=== PATIENT | male | born 1970 | race Caucasian/White ===

== ENCOUNTER 2016-11-07 18:39 | Emergency (ER) | payer OTHER, MEDICAID ==
[~2016-11-07] VITALS: Ht 162.6 cm; Wt 110.7 kg
[~2016-11-07 18:39] MED LIST: ACULAR PF0.5% OU; ALDACTONE25 MG; ALDACTONE25 MG PO; AMBIEN10 MG PO; AMBIEN5 MG PO; AMLODIPINE BESYL5 M1 PO; APAP500 MG PO; ASPIR 8181 MG PO; ASPIRIN81 MG PO; ATORVASTATIN CA40 M1 PO; BACLOFEN10 MG PO; BACTRIM DS1 TAB PO; BEN20 PO; CARVEDILOL12.5 M1 PO; CELEXA10 MG PO; CIPRO500 MG PO; DOXYCYCLINE HY100 MG PO; ECO81 PO; ENALAPRIL MALEA20 MG PO; ENALAPRIL20 M1 PO; FLONS; FUROSEMIDE20 MG PO; GLU500 PO; GOOD SENSE ASPI81 M3 PO; HUMALOG; HUMALOG100 U/ML SC; HYDROCODONE BIT1 TA9 PO; JANUVIA100 M1 PO; K10 PO; LAC PO; LANTI SC; LANTUS; LANTUS SOLOS100 U/M1 SC; LANTUS SOLOS100 U/M1 SQ; LASIX20 MG; LASIX20 MG PO; LASIX40 MG PO; LIPITOR80 MG PO; LOPRESSOR50 MG PO; MAAL PO; METFORMIN ER500 M1 PO; METOPROLOL SUCC25 M1 PO; METOPROLOL SUCC50 M1 PO; NEU300 PO; NORCO1 TA2 PO; OMEPRAZOLE DR20 M1 PO; ONDANSETRON8 M1 PO; PORTIA PO; POTASSIUM CHLO10 MEQ PO; POTASSIUM CHLOR8 MEQ PO; PREDNISOLONE ACETATE OU; PRI20 PO; PROMETHAZI6.25 MG/5 PO; SIMVASTATIN20 M1 PO; TERAZOSIN HCL2 MG PO; THERAGRAN-M1 TA4 PO; VIGAMOX3 ML OU; ZOC20 PO
[2016-11-07 19:25] LABS: BASOPHIL % 0.1 % (0-2); PLATELET COUNT 260 x10^3mcL (130-400); RED CELL DISTRIBUTION WIDTH 13.6 % (11.5-14.5)
[2016-11-07 19:34] LABS: CALCIUM 8.2 mg/dL (8.5-10.1); CARBON DIOXIDE 25.5 mmol/L (21-32); CREATININE SERUM 2.2 mg/dL (0.7-1.3); POTASSIUM SERUM 4.9 mmol/L (3.5-5.1)
[2016-11-07 19:40] LABS: BILIRUBIN TOTAL 0.3 mg/dL (0.20-1.00); TOTAL PROTEIN, SERUM 6.8 g/dL (6.4-8.2)
[2016-11-07 19:41] LABS: ALBUMIN 2.5 g/dL (3.4-5.0)
[2016-11-07 20:36] LABS: UA SPECIFIC GRAVITY <=1.005 (1.005-1.035); microscopic required? YES; urine erythrocyte 1+ (NEGATIVE)
[2016-11-07 21:22] VITALS: BP 140/71
== END 2016-11-07 21:22 | disposition home or self-care (01) ==
LOC: ED 18:39
PROVIDERS: Emergency Medicine
DX: R10.11 Right upper quadrant pain (principal); R10.13 Epigastric pain; E11.22 Type 2 diabetes mellitus with diabetic chronic kidney disease; I12.9 Hypertensive chronic kidney disease with stage 1 through stage 4 chronic kidney disease, or unspecified chronic kidney disease; N18.9 Chronic kidney disease, unspecified; E11.65 Type 2 diabetes mellitus with hyperglycemia; Z86.79 Personal history of other diseases of the circulatory system; Z86.73 Personal history of transient ischemic attack (TIA), and cerebral infarction without residual deficits; Z79.899 Other long term (current) drug therapy; Z90.49 Acquired absence of other specified parts of digestive tract
CPT/HCPCS: J1885; J2270; J2405; J7030; Q0092

== ENCOUNTER 2017-12-12 23:30 | Inpatient (IN) | payer OTHER ==
[~2017-12-12] VITALS: Ht 162.6 cm; Wt 105.5 kg
[~2017-12-12 23:30] MED LIST changes: +CELEXA20 MG PO; +HUMALOG100 UNIT/1 PO; +LANTUS SOLOS100 U/M1 PO; +METOPROLOL TART25 M1 PO; -OMEPRAZOLE DR20 M1 PO; +OMEPRAZOLE MAGN20 M1; +TESSALON PERLE100 MG PO; +TRADJENTA5 M1 PO
[2017-12-12 23:34] VITALS: Ht 162.6 cm; Wt 105.5 kg
[2017-12-13 00:34] LABS: BASOPHIL % 0.2 % (0-2); PLATELET COUNT 304 x10^3mcL (130-400); RED CELL DISTRIBUTION WIDTH 14.5 % (11.5-14.5)
[2017-12-13 00:41] LABS: CALCIUM 8.3 mg/dL (8.5-10.1); CARBON DIOXIDE 24.9 mmol/L (21-32); CREATININE SERUM 2.7 mg/dL (0.7-1.3); POTASSIUM SERUM 5.2 mmol/L (3.5-5.1)
[2017-12-13 00:46] LABS: BILIRUBIN TOTAL 0.2 mg/dL (0.20-1.00); TOTAL PROTEIN, SERUM 6.5 g/dL (6.4-8.2)
[2017-12-13] MEDS ORDERED: CELEXA20 MG PO (01:23)
[2017-12-13] MEDS ORDERED: SPIRONOLACTONE100 MG PO (01:23)
[2017-12-13] MEDS ORDERED: NORCO1 TA2 PO (01:24)
[2017-12-13] MEDS ORDERED: NEU300 PO (01:24)
[2017-12-13] MEDS ORDERED: ENALAPRIL MALEA20 MG PO (01:25)
[2017-12-13] MEDS ORDERED: METOPROLOL SUCC50 M2 PO (01:25)
[2017-12-13] MEDS ORDERED: TRADJENTA5 M1 PO (01:25)
[2017-12-13] MEDS ORDERED: REG5 PO (01:26)
[2017-12-13] MEDS ORDERED: FUROSEMIDE40 MG PO (01:27)
[2017-12-13] MEDS ORDERED: MIRAPEX0.25 MG PO (01:27)
[2017-12-13] MEDS ORDERED: VITAFOL-ONE1 SGL PO (01:28)
[2017-12-13 02:04] LABS: T3 TOTAL 1.43 ng/mL
[2017-12-13 02:05] LABS: FREE T4 0.88 ng/dL (0.76-1.46); FREE THYROXINE INDEX 2.2 ug/dL (1.4-4.5)
[2017-12-13 02:33] VITALS: BP 147/76
[2017-12-13 02:43] LABS: PHOSPHOROUS 4.2 mg/dL (2.5-4.9)
[2017-12-13 05:11] VITALS: BP 139/78
[2017-12-13 06:18] LABS: BASOPHIL % 0.4 % (0-2); PLATELET COUNT 287 x10^3mcL (130-400); RED CELL DISTRIBUTION WIDTH 14.3 % (11.5-14.5)
[2017-12-13 06:30] LABS: CARBON DIOXIDE 22.7 mmol/L (21-32); CREATININE SERUM 2.6 mg/dL (0.7-1.3)
[2017-12-13 07:03] LABS: POTASSIUM SERUM 6.1 mmol/L (3.5-5.1)
[2017-12-13 07:51] LABS: UA SPECIFIC GRAVITY 1.025 (1.005-1.035); microscopic required? YES; urine erythrocyte 1+ (NEGATIVE)
[2017-12-13 08:01] LABS: AMPHETAMINE QUAL UR NONE DETECTED (See below)
[2017-12-13 08:54] VITALS: BP 138/77
[2017-12-13 17:41] VITALS: BP 126/78
[2017-12-13 21:29] VITALS: BP 129/50
[2017-12-14 05:09] VITALS: BP 108/57
[2017-12-14 06:50] LABS: BASOPHIL % 0.4 % (0-2); PLATELET COUNT 339 x10^3mcL (130-400); RED CELL DISTRIBUTION WIDTH 13.3 % (11.5-14.5)
[2017-12-14 07:08] LABS: CALCIUM 8.9 mg/dL (8.5-10.1); CARBON DIOXIDE 25.2 mmol/L (21-32); CREATININE SERUM 2.5 mg/dL (0.7-1.3); PHOSPHOROUS 4.7 mg/dL (2.5-4.9)
[2017-12-14 07:12] LABS: POTASSIUM SERUM 6.1 mmol/L (3.5-5.1)
[2017-12-14 08:00] VITALS: BP 121/55
[2017-12-14 12:55] LABS: CALCIUM 8.9 mg/dL (8.5-10.1); CARBON DIOXIDE 26.5 mmol/L (21-32); CREATININE SERUM 2.5 mg/dL (0.7-1.3); POTASSIUM SERUM 5.5 mmol/L (3.5-5.1)
[2017-12-14] MEDS ORDERED: [UNRECOGNIZED DRUG - OTHER] PO (15:39)
[2017-12-14 16:49] VITALS: BP 121/55
[2017-12-14 16:55] VITALS: BP 127/69
== END 2017-12-14 17:10 | disposition home or self-care (01) | DRG 438 ==
LOC: ED 23:30 → MU 12-13 00:59 → DU 12-13 00:59 → MU 12-13 02:17
PROVIDERS: Emergency Medicine; Internal Medicine
DX: K85.90 Acute pancreatitis without necrosis or infection, unspecified (principal); N17.0 Acute kidney failure with tubular necrosis; E43 Unspecified severe protein-calorie malnutrition; I50.43 Acute on chronic combined systolic (congestive) and diastolic (congestive) heart failure; E11.65 Type 2 diabetes mellitus with hyperglycemia; E87.5 Hyperkalemia; F32.9 Major depressive disorder, single episode, unspecified; D64.9 Anemia, unspecified; E78.5 Hyperlipidemia, unspecified; I25.2 Old myocardial infarction; Z79.4 Long term (current) use of insulin; Z86.73 Personal history of transient ischemic attack (TIA), and cerebral infarction without residual deficits
CPT/HCPCS: 82962; 83880; 84439; J1815; J2270; J2405; J3490; J7030; J8597; Q0092

== ENCOUNTER 2018-04-27 22:03 | Emergency (ER) | payer OTHER ==
[~2018-04-27] VITALS: Ht 162.6 cm; Wt 108.9 kg
[~2018-04-27 22:03] MED LIST changes: +FUROSEMIDE40 MG PO; +METOPROLOL SUCC50 M2 PO; +MIRAPEX0.25 MG PO; +REG5 PO; +SPIRONOLACTONE100 MG PO; +VITAFOL-ONE1 SGL PO; +[UNRECOGNIZED DRUG - OTHER] PO
[2018-04-27 23:04] VITALS: Ht 162.6 cm; Wt 108.9 kg
[2018-04-28 00:36] LABS: BASOPHIL % 0.3 % (0-2); PLATELET COUNT 334 x10^3mcL (130-400); RED CELL DISTRIBUTION WIDTH 13.6 % (11.5-14.5)
[2018-04-28 00:40] LABS: BILIRUBIN TOTAL 0.1 mg/dL (0.20-1.00); CALCIUM 8.3 mg/dL (8.5-10.1); CARBON DIOXIDE 25.4 mmol/L (21-32); CREATININE SERUM 3.3 mg/dL (0.7-1.3); POTASSIUM SERUM 4.9 mmol/L (3.5-5.1)
[2018-04-28 00:42] LABS: ALBUMIN 2.2 g/dL (3.4-5.0)
[2018-04-28 02:13] VITALS: BP 100/53
== END 2018-04-28 02:00 | disposition home or self-care (01) ==
LOC: ED 22:03
PROVIDERS: Emergency Medicine
DX: R10.32 Left lower quadrant pain (principal); E11.22 Type 2 diabetes mellitus with diabetic chronic kidney disease; I12.9 Hypertensive chronic kidney disease with stage 1 through stage 4 chronic kidney disease, or unspecified chronic kidney disease; N18.9 Chronic kidney disease, unspecified; E78.00 Pure hypercholesterolemia, unspecified; Z86.73 Personal history of transient ischemic attack (TIA), and cerebral infarction without residual deficits; Z90.49 Acquired absence of other specified parts of digestive tract; Z95.5 Presence of coronary angioplasty implant and graft; Z98.890 Other specified postprocedural states
CPT/HCPCS: 82962; J2270; J2405; J7030

== ENCOUNTER 2018-10-27 22:16 | Emergency (ER) | payer OTHER ==
[~2018-10-27] VITALS: Ht 162.6 cm; Wt 115.8 kg
[2018-10-27 22:19] VITALS: Ht 162.6 cm; Wt 115.8 kg
[2018-10-27 23:34] LABS: BASOPHIL % 0.3 % (0-2); PLATELET COUNT 285 x10^3mcL (130-400); RED CELL DISTRIBUTION WIDTH 13.4 % (11.5-14.5)
[2018-10-27 23:48] LABS: BILIRUBIN TOTAL 0.2 mg/dL (0.20-1.00); CALCIUM 7.7 mg/dL (8.5-10.1); CARBON DIOXIDE 25.5 mmol/L (21-32); POTASSIUM SERUM 4.9 mmol/L (3.5-5.1); TOTAL PROTEIN, SERUM 6.5 g/dL (6.4-8.2)
[2018-10-27 23:51] LABS: CREATININE SERUM 4.3 mg/dL (0.7-1.3)
[2018-10-28 00:24] VITALS: BP 141/41
== END 2018-10-28 00:24 | disposition home or self-care (01) ==
LOC: ED 22:16
PROVIDERS: Specialist
DX: R20.2 Paresthesia of skin (principal); G45.9 Transient cerebral ischemic attack, unspecified; I25.2 Old myocardial infarction; R22.43 Localized swelling, mass and lump, lower limb, bilateral; I12.0 Hypertensive chronic kidney disease with stage 5 chronic kidney disease or end stage renal disease; E11.22 Type 2 diabetes mellitus with diabetic chronic kidney disease; N18.6 End stage renal disease; Z90.49 Acquired absence of other specified parts of digestive tract
CPT/HCPCS: 36415; 82962

== ENCOUNTER 2018-11-27 00:10 | Emergency (ER) | payer OTHER ==
[~2018-11-27] VITALS: Ht 162.6 cm; Wt 113.9 kg
[2018-11-27 00:14] VITALS: Ht 162.6 cm; Wt 113.9 kg
[2018-11-27 02:28] LABS: microscopic required? YES; urine erythrocyte 1+ (NEGATIVE)
[2018-11-27 02:42] LABS: CARBON DIOXIDE 22.2 mmol/L (21-32); CREATININE SERUM 3.5 mg/dL (0.7-1.3); POTASSIUM SERUM 4.2 mmol/L (3.5-5.1)
[2018-11-27 02:43] LABS: BASOPHIL % 0.2 % (0-2); PLATELET COUNT 251 x10^3mcL (130-400); RED CELL DISTRIBUTION WIDTH 13.6 % (11.5-14.5)
[2018-11-27 02:57] LABS: ALBUMIN 2.1 g/dL (3.4-5.0); BILIRUBIN TOTAL 0.25 mg/dL (0.20-1.00); TOTAL PROTEIN, SERUM 6.8 g/dL (6.4-8.2)
[2018-11-27 04:05] VITALS: BP 147/71
== END 2018-11-27 04:05 | disposition home or self-care (01) ==
LOC: ED 00:10
PROVIDERS: Emergency Medicine
DX: R10.31 Right lower quadrant pain (principal); R10.32 Left lower quadrant pain; R19.7 Diarrhea, unspecified; R11.0 Nausea; L53.9 Erythematous condition, unspecified
CPT/HCPCS: J2405; J3010

== ENCOUNTER 2019-01-17 02:33 | Emergency (ER) | payer OTHER ==
[~2019-01-17] VITALS: Ht 162.6 cm; Wt 113.4 kg
[2019-01-17 02:35] VITALS: Ht 162.6 cm; Wt 113.4 kg
[2019-01-17 03:16] LABS: BASOPHIL % 0.3 % (0-2); PLATELET COUNT 293 x10^3mcL (130-400); RED CELL DISTRIBUTION WIDTH 14.3 % (11.5-14.5)
[2019-01-17 03:35] LABS: BILIRUBIN TOTAL 0.21 mg/dL (0.20-1.00); CALCIUM 8.6 mg/dL (8.5-10.1); CARBON DIOXIDE 23.3 mmol/L (21-32); POTASSIUM SERUM 4.2 mmol/L (3.5-5.1); TOTAL PROTEIN, SERUM 7.5 g/dL (6.4-8.2)
[2019-01-17 03:36] LABS: ALBUMIN 2.2 g/dL (3.4-5.0)
[2019-01-17 04:44] VITALS: BP 148/90
== END 2019-01-17 04:44 | disposition home or self-care (01) ==
LOC: ED 02:33
PROVIDERS: Emergency Medicine
DX: K52.9 Noninfective gastroenteritis and colitis, unspecified (principal); E11.9 Type 2 diabetes mellitus without complications; E78.00 Pure hypercholesterolemia, unspecified; I10 Essential (primary) hypertension; Z86.73 Personal history of transient ischemic attack (TIA), and cerebral infarction without residual deficits; Z90.49 Acquired absence of other specified parts of digestive tract
CPT/HCPCS: J1885; J2405; J7030

== ENCOUNTER 2019-09-10 03:29 | Emergency (ER) | payer OTHER ==
[~2019-09-10] VITALS: Ht 162.6 cm; Wt 115.8 kg
[2019-09-10 04:52] LABS: CALCIUM 7.7 mg/dL (8.5-10.1); CARBON DIOXIDE 20.1 mmol/L (21-32)
[2019-09-10 04:54] LABS: CREATININE SERUM 7.2 mg/dL (0.7-1.3)
[2019-09-10 05:44] VITALS: BP 187/97
== END 2019-09-10 05:44 | disposition home or self-care (01) ==
LOC: ED 03:29
PROVIDERS: Student in an Organized Health Care Education/Training Program
DX: E87.6 Hypokalemia (principal); E11.22 Type 2 diabetes mellitus with diabetic chronic kidney disease; I12.0 Hypertensive chronic kidney disease with stage 5 chronic kidney disease or end stage renal disease; N18.6 End stage renal disease; M79.604 Pain in right leg; E78.00 Pure hypercholesterolemia, unspecified; Z86.73 Personal history of transient ischemic attack (TIA), and cerebral infarction without residual deficits; Z90.49 Acquired absence of other specified parts of digestive tract

== ENCOUNTER 2019-10-08 22:47 | Emergency (ER) | payer OTHER ==
[~2019-10-08] VITALS: Ht 162.6 cm; Wt 117.9 kg
[2019-10-08 22:58] VITALS: Ht 162.6 cm; Wt 117.9 kg
--- NOTE | 2019-10-08 23:04 | NUR ---
PT RESTING IN BED, [id number] WITH C/O 09/01 PAIN TO [facility] LEGS S/P INCREASED SWELLING NOTED THIS AM. PT NOTED TO HAVE INCREASED WORK OF BREATHING WITH EXERTION. PT DENIES ANY N/V/D/C, RESP ILLNESS, FEVER OR URINARY PROBLEMS AT THIS TIME. PT PLACED ON MONITOR. DR ORTA AT BEDSIDE.
--- NOTE | 2019-10-09 | NUR ---
PT RESTING IN BED WITH EYES CLOSED WITH NO SIGNS OF DISTRESS.
[2019-10-09 00:12] LABS: BASOPHIL % 0.5 % (0-2); PLATELET COUNT 266 x10^3mcL (130-400); RED CELL DISTRIBUTION WIDTH 14.1 % (11.5-14.5)
[2019-10-09 00:33] LABS: BILIRUBIN TOTAL 0.2 mg/dL (0.20-1.00); CALCIUM 6.1 mg/dL (8.5-10.1); CARBON DIOXIDE 20.3 mmol/L (21-32); POTASSIUM SERUM 4.5 mmol/L (3.5-5.1); TOTAL PROTEIN, SERUM 6.9 g/dL (6.4-8.2)
[2019-10-09 00:34] LABS: ALBUMIN 1.9 g/dL (3.4-5.0)
[2019-10-09] MEDS ORDERED: POTASSIUM CHLO10 MEQ PO (01:28)
[2019-10-09] MEDS ORDERED: ALD25 PO (01:28)
[2019-10-09] MEDS ORDERED: KLOR-CON 1010 MEQ PO (01:28)
[2019-10-09] MEDS ORDERED: CALCIUM ACETAT667 M2 PO (01:29)
--- NOTE | 2019-10-09 02:00 | NUR ---
CALLED TO PT ROOM, PT REQUEST TO USE RESTROOM. PT AMBULATED TO RESTROOM W/STEADY GAIT. NO S/S OF DISTRESS. RESP E/U. WILL CONTINUE TO MONITOR.
[2019-10-09 02:37] LABS: MAGNESIUM 1.9 mg/dL (1.8-2.4)
[2019-10-09 02:43] LABS: CHOLESTEROL/HDL RATIO 5.9
[2019-10-09 02:57] LABS: PHOSPHOROUS 9.1 mg/dL (2.5-4.9)
--- NOTE | 2019-10-09 03:12 | NUR ---
PT SLEEP ON GURNEY EASILY ARROUSABLE. NO S/S OF DISTRESS. RESP E/U. PT REQUESTED BLANKET FOR COMFORT. WILL CONTINUE TO MONITOR.
--- NOTE | 2019-10-09 04:54 | NUR ---
PT SLEEPING ON GURNEY, NO S/S OF DISTRESS. RESP E/U. WILL CONTINUE TO MONITOR.
--- NOTE | 2019-10-09 05:27 | NUR ---
PT STS HE WOULD LIKE TO LEAVE HOSPITAL AMA. PT STS HE HAS WAITED FOR A ROOM ALL NIGHT. PT STS HE URINATED ON HIMSELF NOW HE IS FEELING EMBARESSED. EXPLAINED TO PT HE SHOULD NOT LEAVE THE HOSPITAL. PT STS HE WILL GO TO ANOTHER HOSPITAL LIKE [facility] WHERE HE CAN GET A BED. MD ORTA, STS HE WILL SPEAK TO PT ABOUT LEAVING AMA. WILL CONTINUE TO MONITOR.
--- NOTE | 2019-10-09 05:32 | NUR ---
SPOKE W/DR. ORTA STS PATIENT WOULD STILL LIKE TO LEAVE AMA AFTER RISK WERE EXPLAINED TO PT. PT STS HE CALLED HIS AND NEPHROLIGIST AND HE WILL START DIALYSIS THURSDAY. PT INSISTS ON LEAVING AMA.
--- NOTE | 2019-10-09 05:40 | NUR ---
ATTEMPTED TO HAVE PT STAY, OFFERED PT A NEW PAIR OF PANTS AND A HOSPITAL BED AT THIS TIME. PT STS HE WOULD LIKE TO JUST FOLLOW UP WITH HIS DOCTOR ON THURSDAY. PT STS HIS WILL COME AND GET HIM. PT VERBALIZED THE RISKS OF LEAVING AMA.
[2019-10-09 05:41] VITALS: BP 138/57
--- NOTE | 2019-10-09 05:41 | NUR ---
PT AMBULATED FROM ED W/STEADY GAIT. NO S/S OF DISTRESS. RESP E/U. WILL CONTINUE TO MONITOR.
== END 2019-10-09 05:41 | disposition short-term general hospital (02) ==
LOC: ED 22:47 → DU 10-09 01:10
PROVIDERS: Emergency Medicine; Family Medicine
DX: I13.0 Hypertensive heart and chronic kidney disease with heart failure and stage 1 through stage 4 chronic kidney disease, or unspecified chronic kidney disease (principal); E11.22 Type 2 diabetes mellitus with diabetic chronic kidney disease; I50.9 Heart failure, unspecified; N17.9 Acute kidney failure, unspecified; E88.81 Metabolic syndrome and other insulin resistance; E78.00 Pure hypercholesterolemia, unspecified; Z90.49 Acquired absence of other specified parts of digestive tract
CPT/HCPCS: 83880; J1940; J3490; Q0092

== ENCOUNTER 2019-11-05 20:06 | Emergency (ER) | payer OTHER ==
[~2019-11-05] VITALS: Ht 162.6 cm; Wt 158.8 kg
[~2019-11-05 20:06] MED LIST changes: +ALD25 PO; +ASPIRIN CHILDRE81 MG; -ASPIRIN81 MG PO; +CALCIUM ACETAT667 M2 PO; +CEPHALEXIN500 MG PO; +IBU600 M2 PO; +KEFLEX500 M1 PO; +KLOR-CON 1010 MEQ PO
[2019-11-05 21:40] LABS: BASOPHIL % 0.1 % (0-2); PLATELET COUNT 369 x10^3mcL (130-400); RED CELL DISTRIBUTION WIDTH 14.7 % (11.5-14.5)
[2019-11-05 21:51] LABS: BILIRUBIN TOTAL 0.2 mg/dL (0.20-1.00); CALCIUM 8.6 mg/dL (8.5-10.1); CARBON DIOXIDE 24.2 mmol/L (21-32); POTASSIUM SERUM 4.8 mmol/L (3.5-5.1)
[2019-11-05 21:56] LABS: ALBUMIN 1.8 g/dL (3.4-5.0)
[2019-11-05 23:16] VITALS: BP 164/93
== END 2019-11-05 23:17 | disposition home or self-care (01) ==
LOC: ED 20:06
PROVIDERS: Emergency Medicine
DX: L03.115 Cellulitis of right lower limb (principal); I10 Essential (primary) hypertension; G45.9 Transient cerebral ischemic attack, unspecified; E11.9 Type 2 diabetes mellitus without complications; E78.00 Pure hypercholesterolemia, unspecified; Z90.49 Acquired absence of other specified parts of digestive tract
CPT/HCPCS: J0360; J0690; J2270; J2405; Q0092; Q0162

== ENCOUNTER 2019-11-13 19:41 | Emergency (ER) | payer OTHER ==
[~2019-11-13] VITALS: Ht 162.6 cm; Wt 116.1 kg
[2019-11-13 20:18] VITALS: Ht 162.6 cm; Wt 116.1 kg
[2019-11-13 23:34] VITALS: BP 128/69
== END 2019-11-13 23:35 | disposition home or self-care (01) ==
LOC: ED 19:41
DX: R60.0 Localized edema (principal); L30.9 Dermatitis, unspecified; L03.115 Cellulitis of right lower limb; I10 Essential (primary) hypertension; E11.9 Type 2 diabetes mellitus without complications; E78.00 Pure hypercholesterolemia, unspecified; E66.9 Obesity, unspecified; Z90.49 Acquired absence of other specified parts of digestive tract
CPT/HCPCS: J7512